=== PATIENT | male | born 1950 | race Caucasian/White ===

== ENCOUNTER 2018-04-11 11:10 | Emergency (ER) | payer BC, MEDICARE ==
[2018-04-11] MEDS ORDERED: AMOX/CLAV 875 MG/125 MG TABLET PO STA (13:43)
--- NOTE | 2018-04-11 13:43 | ED Physician Documentation ---
History of Present Illness - Stated complaint Stated Complaint: RT HAND SWOLLEN/CAT BITE - Chief complaint Chief Complaint: General - History obtained from History obtained from: Patient - History of Present Illness Timing: Yesterday Pain level max: 6 Pain level now: 6 Improved by: nothing Worsened by: movement - Additonal information Additional information: cat bite to R hand yesterday, increased redness, swelling and pain today. Took motrin without relief. Td is UTD. Pt is right handed. Review of Systems Constitutional: denies: Fever, Chills GI: denies: Vomiting Skin: denies: Rash Musculoskeletal: denies: Neck pain, Back pain Neurologic: denies: Headache PD PAST MEDICAL HISTORY - Past Medical History Past Medical History: No - Past Surgical History Past Surgical History: No - Present Medications Home Medications: Ambulatory Orders Medication Instructions Recorded Confirmed Amox/Clav 875/125 [Augmentin] 1 each PO Q12H #20 tablet 04/11/18 Citalopram [CeleXA] 04/11/18 Hydrocodone/Acetaminophen 1 - 2 each PO Q6H PRN #10 tablet 04/11/18 [Hydrocodon-Acetaminophen 5-325] - Allergies Allergies/Adverse Reactions: Allergies Allergy/AdvReac Type Severity Reaction Status Date / Time No Known Drug Allergies Allergy Verified 04/11/18 11:17 - Social History Does the pt smoke?: No Smoking Status: Never smoker Does the pt drink ETOH?: No Does the pt have substance abuse?: No - Immunizations Immunizations are current?: Yes - POLST Patient has POLST: No PD ED PE NORMAL - Vitals Vital signs reviewed: Yes - General General: Alert and oriented X 3, No acute distress - HEENT HEENT: Moist mucous membranes - Neck Neck: Supple, no meningeal sign - Cardiac Cardiac: RRR - Respiratory Respiratory: No respiratory distress, Clear bilaterally - Derm Derm: Warm and dry - Extremities Extremities: Other (R hand - Erythema and swelling to the dorsum of the hand, extends from the PIP joints of the fingers down to the wrist. No palmar tenderness. No pain with range of motion of the fingers or thumb. No tenderness along the tendons. No lymphangitic spread. Neurovascularly intact) - Neuro Neuro: Alert and oriented X 3 - Psych Psych: Normal mood, Normal affect Results - Vitals Vitals: Vital Signs - 24 hr 04/11/18 04/11/18 11:15 14:08 Temperature 36.8 C 36.8 C Heart Rate 74 58 L Respiratory 20 18 Rate Blood Pressure 146/87 H 142/91 H O2 Saturation 98 99 Oxygen O2 Source Room air PD MEDICAL DECISION MAKING - ED course Complexity details: considered differential, d/w patient ED course: Patient is a 68-year-old male with cellulitis of the right hand. Will place on antibiotics and follow-up closely with his doctor. Patient was also given a dose of ceftriaxone here. Tdap given. Patient counseled regarding signs and symptoms for which I believe and urgent re-evaluation would be necessary. Patient with good understanding of and agreement to plan and is comfortable going home at this time No evidence of deep space infection This document was made in part using voice recognition software. While efforts are made to proofread this document, sound alike and grammatical errors may occur. - Sepsis Event Vital Signs: Vital Signs - 24 hr 04/11/18 04/11/18 11:15 14:08 Temperature 36.8 C 36.8 C Heart Rate 74 58 L Respiratory 20 18 Rate Blood Pressure 146/87 H 142/91 H O2 Saturation 98 99 Oxygen O2 Source Room air Departure - Departure Disposition: 01 Home, Self Care Clinical Impression: Cellulitis of hand Cat bite Qualifiers: Encounter type: initial encounter Qualified Code(s): W55.01XA - Bitten by cat, initial encounter Condition: Good Instructions: ED Bite Animal General, ED Infec Skin Cellulitis Follow-Up: MARIANA CAMPBELL MD [Primary Care Provider] - Within 3 Days (for wound check) Prescriptions: Amox/Clav 875/125 [Augmentin] 1 each PO Q12H #20 tablet Hydrocodone/Acetaminophen [Hydrocodon-Acetaminophen 5-325] 1 - 2 each PO Q6H PRN #10 tablet PRN Reason: pain Comments: Take all antibiotics until gone. Return if you worsen. Do not drive or operate heavy machinery while on hydrocodone. Do not mix with alcohol. Discharge Date/Time: 04/11/18 14:08
[2018-04-11] MEDS ORDERED: LIDOCAINE 1% 2 ML VIAL SUBQ ONE (13:52)
[2018-04-11] MEDS ORDERED: cefTRIAXone 1 GM VIAL IM STA (13:52)
[2018-04-11 14:09] VITALS: BP 142/91
== END 2018-04-11 14:08 | disposition home or self-care (01) ==
LOC: ED 11:10
DX: L03.113 Cellulitis of right upper limb (principal); S61.451A Open bite of right hand, initial encounter; W55.01XA Bitten by cat, initial encounter
CPT/HCPCS: 96372; 99283; A9270

== ENCOUNTER 2024-01-13 19:24 | Outpatient (CLI) | payer MEDICARE | END 2024-01-13 19:25 | disposition EMS.NT | LOC: EMS 19:24 | DX: S01.81XA Laceration without foreign body of other part of head, initial encounter (principal); W18.39XA Other fall on same level, initial encounter; Y92.410 Unspecified street and highway as the place of occurrence of the external cause ==

== ENCOUNTER 2024-01-13 20:15 | Emergency (ER) | payer MEDICARE ==
[2024-01-13 20:32] VITALS: BP 149/85; O2SAT 100
--- NOTE | 2024-01-13 21:39 | ED Physician Documentation ---
PD HPI HEAD INJURY - Stated complaint Stated Complaint: FALL/HEAD LAC - Chief complaint Chief Complaint: Trauma Hd/Nk - History obtained from History obtained from: Patient, Family - History of Present Illness Mechanism of head injury: Fell Where head injury occurred: [facility] Timing - onset: How many hours ago (1) Pain level max: 5 Pain level now: 4 Location of injury: Back Quality of pain: Pain, Throbbing, Aching, Dull Associated symptoms: No: LOC, AMS, Amnesia, Nausea / vomiting, Neck pain, Paresthesias, Seizures, Ear drainage, Nasal drainage Symptoms improve with: Rest Symptoms worsen with: Palpation, Movement Contributing factors: No: Anticoagulated, Intoxicated - Additional information Additional information: 73-year-old male fell today and struck the back of his head on concrete. Laceration to the occiput. No loss of consciousness. No vomiting. No seizure activity. Not anticoagulated. No neck or back pain. Review of Systems GI: denies: Vomiting PD PAST MEDICAL HISTORY - Past Medical History Past Medical History: Yes Cardiovascular: None Respiratory: None Neuro: None Endocrine/Autoimmune: None GI: None : None HEENT: None Psych: None Musculoskeletal: None Derm: None - Past Surgical History Past Surgical History: No - Present Medications Home Medications: Ambulatory Orders Medication Instructions Recorded Confirmed Citalopram Hydrobromide [Celexa] 20 mg PO DAILY 01/13/24 Omeprazole 20 mg PO DAILY 01/13/24 - Allergies Allergies/Adverse Reactions: Allergies Allergy/AdvReac Type Severity Reaction Status Date / Time No Known Drug Allergies Allergy Verified 01/13/24 20:27 - Social History Does the pt smoke?: No Smoking Status: Never smoker Does the pt drink ETOH?: No Does the pt have substance abuse?: No - Immunizations Immunizations are current?: Yes Immunizations: TDAP current <10years - POLST Patient has POLST: No PD ED PE NORMAL - Vitals Vital signs reviewed: Yes - General General: Alert and oriented X 3, No acute distress - HEENT HEENT: PERRL, EOMI, Moist mucous membranes, Other (3 cm, curved laceration to the occiput. Small hematoma.) - Neck Neck: Supple, no meningeal sign, No bony TTP - Cardiac Cardiac: RRR - Respiratory Respiratory: No respiratory distress, Clear bilaterally - Back Back: No spinal TTP - Derm Derm: Warm and dry - Neuro Neuro: Alert and oriented X 3, shear assembler 2-12 intact, No motor deficit, No sensory deficit, Normal speech Eye Opening: Spontaneous Motor: Obeys Commands Verbal: Oriented GCS Score: 15 - Psych Psych: Normal mood, Normal affect Results - Vitals Vitals: Vital Signs - 24 hr 01/13/24 20:19 Temperature 36.1 C L Heart Rate 61 Respiratory 20 Rate Blood Pressure 149/85 H O2 Saturation 100 Oxygen O2 Source Room air - Rads (name of study) head CT Relevant Findings:: Final report received, See rad report Procedures - Laceration (location) occiput Length in cm: 3 Wound type: Curved, Into subcut fat, Clean Neurovascular status: Sensory intact, Motor intact, Vascular intact Wound preparation: Irrigated copiously NS, Wound explored, To the base Skin layer closure: [place] Other: Patient tolerated well, No complications, Neurovascular intact, Dressing applied, Tetanus UTD PD Medical Decision Making - ED course Complexity details: reviewed results, re-evaluated patient, considered differential, d/w patient ED course: 73-year-old male status post ground-level fall. No acute findings on head CT. Laceration repaired with elijah. Tolerated well. Tetanus up-to-date. GCS 15. Head injury instructions given at bedside. Patient counseled regarding signs and symptoms for which I believe and urgent re-evaluation would be necessary. Patient with good understanding of and agreement to plan and is comfortable going home at this time This document was made in part using voice recognition software. While efforts are made to proofread this document, sound alike and grammatical errors may occur. Departure - Departure Disposition: 01 Home, Self Care Clinical Impression: Occipital scalp laceration Qualifiers: Encounter type: initial encounter Qualified Code(s): S01.01XA - Laceration without foreign body of scalp, initial encounter Closed head injury Qualifiers: Encounter type: initial encounter Qualified Code(s): S09.90XA - Unspecified injury of head, initial encounter Condition: Good Instructions: ED Head Injury Closed, ED Laceration Scalp Stitch Or Stap Follow-Up: Vladimir Palma ARNP [Primary Care Provider] - Comments: Your head CT does not show any acute abnormalities today. The elijah should be removed in approximately 10 to 14 days. This can [place] be done here, [place] Please return for redness, swelling or drainage from the wound. Please return if you worsen. Forms: PCP List Discharge Date/Time: 01/13/24 22:18
--- NOTE | 2024-01-13 22:06 | CT Report ---
PROCEDURE: Head WO INDICATIONS: fall, head injury TECHNIQUE: Noncontrast 4.5 mm thick angled axial sections acquired from the foramen magnum to the vertex. For r adiation dose reduction, the following was used: automated exposure control, adjustment of mA and/or kV according to patient size. COMPARISON: None. FINDINGS: Image quality: Excellent. CSF spaces: Basal cisterns are patent. No extra-axial fluid collections. Ventricles are normal in size and shape. Brain: No midline shift. No intracranial masses or hemorrhage. No area of hypodensity in a vascula r distribution to suggest acute infarction. There is periventricular hypodensity consistent with plaster mechanic milton microvascular ischemic disease. Age-related parenchymal loss. Basal ganglia calcifications. Skull and face: Calvarium and visualized facial bones are intact, without suspicious lesions. Small posterior scalp hematoma. Sinuses: Trace mucosal thickening in the left maxillary sinus. Visualized sinuses and mastoids are o therwise clear. IMPRESSION: No acute intracranial pathology. Small posterior scalp hematoma. Reviewed by: Viral Calhoun MD on 01/13/2024 10:05 PM PDT Approved by: Viral Calhoun MD on 01/13/2024 10:05 PM PDT Station ID: [id number]
== END 2024-01-13 22:18 | disposition home or self-care (01) ==
LOC: ED 20:15
DX: S01.01XA Laceration without foreign body of scalp, initial encounter (principal); S09.90XA Unspecified injury of head, initial encounter; W18.39XA Other fall on same level, initial encounter; Y93.89 Activity, other specified; Y92.830 Public park as the place of occurrence of the external cause
CPT/HCPCS: 12002; 99283; 99284